=== PATIENT | male | born 1985 | race Caucasian/White ===

== ENCOUNTER 2023-12-01 11:16 | Emergency (ER) | payer BC, SELFPAY ==
[2023-12-01 11:18] VITALS: BP 148/89
--- NOTE | 2023-12-01 11:45 | ED.GENMED ---
History of Present Illness
General
Chief Complaint: Abdominal Pain
Source: patient
Exam Limitations: none
Time Seen by Provider: 12/01/23 11:34
History of Present Illness
History of Present Illness:
See MDM
Past History
Past History
ED Past Medical History: None
ED Past Surgical History: None
Social History
Tobacco: Non-smoker
Alcohol: None
Phy Exam
Physical Exam
Physical Exam:
See MDM
Course
Orders/Labs/Results
Orders:
Orders
12/01/23 11:44
CT Abd/pelvis W Iv Cont Urgent
Comment:
Reason For Exam: Left flank and RLQ pain
0.9% Sodium Chloride 1000 ml [Nss] 1,000 ml IV BOLUS
12/01/23 11:51
Complete Blood Count/With Diff Urgent
Comprehensive Metabolic Panel Urgent
Abnormal Lab Results
12/01/23
11:51
Absolute Monos (auto) 0.7 H 10^3/uL
(0.1-0.6)
Immature Gran % 0.6 H %
(0-0.5)
Monocytes % 10.7 H %
(1.7-9.3)
Carbon Dioxide 21 L mmol/L
(22-30)
Albumin 5.1 H g/dl
(3.5-5.0)
12/01/23 11:51
12/01/23 11:51
Vital Signs
Initial and Last Documented VS:
Initial Vital Signs
Temp Pulse Resp BP Pulse Ox
98.2 F 80 20 148/89 99
12/01/23 11:18 12/01/23 11:18 12/01/23 11:18 12/01/23 11:18 12/01/23 11:18
Last Documented Vital Signs
Temp Pulse Resp BP Pulse Ox
98.2 F 70 18 131/77 99
12/01/23 11:18 12/01/23 13:32 12/01/23 13:32 12/01/23 13:32 12/01/23 13:32
MDM/Problems Addressed
Differential Diagnosis Includes:
HPI and MDM Narrative:
38-year-old male presenting for evaluation of left flank pain and right lower quadrant pain. This has been ongoing for several weeks. Patient noticed that he has had increased pain with certain food intakes. He has developed soft stools without
diarrhea or bleeding.
On exam, he does have mild left flank pain. He does have point tenderness to the right lower quadrant. Given the pain, will obtain CT to rule out acute appendicitis. We discussed the possibility of colitis or possibly inflammatory bowel disease
or celiac disease.
He denies recent travel or recent antibiotic
Physical exam
General: Well appearing and non-toxic
HEENT: protecting airway. Mildly dry mucous membranes
Neck: appears supple
CV: No evidence of cyanosis
Resp: No accessory muscle use
Abd: Non-distended. Mild left flank pain and right lower quadrant pain
Extremities: No deformities
Neuro: alert
Psych: Normal affect
Skin: Intact
Problems Addressed including Acute and Chronic Conditions affecting care:
1. Abdominal pain
Acuity: acute
Prognosis: stable
Details: Will obtain CT to rule out colitis versus acute appendicitis
2. Dehydration
Acuity: acute
Prognosis: stable
Details: Will give IV fluids
Updates
CT negative other than mild fatty liver. This was discussed with patient. Discussed following up with GI
Differential Diagnosis (but not limited to): Acute appendicitis, diverticulitis, constipation, colitis
Testing considered: Urinalysis but he denies symptoms
Drug therapy (if applicable): OTC meds, please see d/c instruction regarding Rx drugs
Amount and/or Complexity of Data Reviewed
Clinical info obtained from: Patient
External data reviewed: N/A
Labs I independently reviewed (but not limited to): wbc normal
Radiology: The CT scan was personally and independently reviewed. In addition, official CT report reviewed.
Pulse Ox: not hypoxic
EKG independently reviewed: N/A
Nurse Instructor: N/A
Critical Care: N/A
Risk of Complication:
Social Determinants of health: Good social support
Discussed with other providers: N/A
Escalation of Care includes Admit/Obs: After being observed in the Emergency Department, pt stable for discharge.
Occasional wrong word or 'sound a like' substitutions may have occurred due to the inherent limitations of voice recognition software. Read the chart carefully and recognize, using context, where substitutions have occurred.
*Critical Care Note
Total Time (30-74mins, 75-104mins- exclusive of procedures): Not Applicable
ED Attending Note
-
Portions of this chart may have been created with voice recognition software.� Occasional wrong word or��sound alike� substitutions may have occurred due to the inherent limitations of voice recognition software.
Discharge Plan
Departure
Patient Disposition: Home (Routine Discharge)
Date of Disposition: 12/01/23
Time of Disposition: 14:39
Patient with high blood pressure during this ER visit?: No
Discharge Problem:
Abdominal pain
Instructions: Abdominal Pain
Prescriptions:
No Action
prednisone 10 MG tablet
10 mg PO .TAPER Qty: 30 0RF
Rx Instructions:
Take 40mg daily x3days, 30mg daily x3days,
20mg daily x3days, 10mg daily x3days.
valacyclovir [Valtrex] 1,000 MG tablet
1,000 mg PO TID Qty: 21 0RF
Referrals:
Milton Jimenez MD [Family Provider] -
Taylor Narvaez DO [Active] -
Activity Restrictions/Additional Instructions:
It is not clear what is causing your symptoms. Please call to make first available appointment with the medical office receptionist assistant. Please start journaling a food diary to see if you can find some sort of correlation to certain foods.
Please return for any worsening symptoms.
You may return at any time if you have further concerns.
Please follow up with your doctor at the first available appointment, preferably this week.
Thank you for choosing [facility].
Interventions
Interventions:
*Risk Screen - Suicide Last Done: 12/01/23 13:11
*General Assessment Last Done: 12/01/23 13:12
*Neglect/Abuse Screening Last Done: 12/01/23 13:11
JL-Dafyog-Vkbzlzmcbz Assessment Last Done: 12/01/23 11:54
Discharge Date and Time
Print Language: WELSH
[2023-12-01 11:48] VITALS: BMI 30.8
[2023-12-01 12:02] LABS: % Basophils 1.2 % (0-2); % Immature Granulocytes 0.6 % (0-0.5); % Lymphocytes 31.1 % (20.5-51.1); % Monocytes 10.7 % (1.7-9.3); % Neutrophils 54.4 % (42.2-75.2); Absolute Basophils 0.1 10^3/uL (0-0.2); Absolute Eosinophils 0.1 10^3/uL (0-0.7); Absolute Monocytes 0.7 10^3/uL (0.1-0.6); Absolute Neutrophils 3.5 10^3/uL (1.4-6.5); Hematocrit 42.1 % (39.0-52.0); Hemoglobin 14.6 g/dL (13.0-18.0); Mean Corp Hgb Conc. 34.7 g/dL (33.0-37.0); Mean Corpuscular Hgb 29.6 pg (27.0-31.0); Mean Corpuscular Volume 85.4 fL (80.0-94.0); Mean Platelet Volume 9.4 fL (7.4-10.4); Nucleated Red Blood Cells % 0 % (-); Platelet Count 243 10^3/uL (130-400); Red Blood Cell Count 4.93 10^6/uL (4.70-6.10); Red Cell Dist. Width 12.4 % (11.5-14.5); White Blood Cell Count 6.5 10^3/uL (4.8-10.8)
[2023-12-01] MEDS: NSS 1000 IV (12:08)
[2023-12-01 12:17] LABS: ALT (SGPT) 28 U/L (0-50); AST (SGOT) 27 U/L (17-59); Albumin 5.1 g/dl (3.5-5.0); Alkaline Phosphatase 66 U/L (38-126); Blood Urea Nitrogen 12 mg/dl (9-20); Calcium 10.2 mg/dl (8.4-10.2); Carbon Dioxide 21 mmol/L (22-30); Chloride 105 mmol/L (98-107); Estimated Creatinine Clearance > 125 ml/min; Glucose 95 mg/dl (70-99); Potassium 4.4 mmol/L (3.5-5.1); Sodium 142 mmol/L (135-145); Total Bilirubin 0.6 mg/dl (0.2-1.3); Total Protein 7.4 g/dl (6.3-8.2); eGFR > 60.00
[2023-12-01 13:32] VITALS: BP 131/77
[2023-12-01 14:48] VITALS: BP 131/77
== END 2023-12-01 14:55 | disposition home or self-care (01) ==
LOC: EMR 11:16
PROVIDERS: EMERGENCY PHYSICIAN Student in an Organized Health Care Education/Training Program; FAMILY PHYSICIAN Family Medicine
DX: R10.31 Right lower quadrant pain (principal)
CPT/HCPCS: 99284; 96360; 74177; 80053; 85025; Q9967

== ENCOUNTER 2024-04-12 06:33 | Day surgery (SDC) | payer BC, SELFPAY | END 2024-04-12 14:01 | disposition home or self-care (01) | LOC: GI 06:33 | PROVIDERS: ATTENDING PHYSICIAN Internal Medicine Gastroenterology; FAMILY PHYSICIAN Family Medicine | DX: R19.4 Change in bowel habit (principal); K64.8 Other hemorrhoids; K63.5 Polyp of colon; R10.10 Upper abdominal pain, unspecified; K29.70 Gastritis, unspecified, without bleeding | CPT/HCPCS: 45380; 43239; 88305; 88342 ==